=== PATIENT | female | born 1990 | race Caucasian/White ===

== ENCOUNTER 2018-02-14 21:14 | Emergency (ER) | payer BC, MEDICAID, OTHER ==
[~2018-02-14] VITALS: Ht 157.5 cm; Wt 51.7 kg
[2018-02-14 21:17] VITALS: BP_SYST 120
[2018-02-14 21:43] LABS: BILIRUBIN,URINE NEGATIVE (NEGATIVE); BLOOD, URINE 2+ (NEGATIVE); CLARITY/URINE CLOUDY (CLEAR); COLOR,URINE YELLOW (YELLOW); GLUCOSE,URINE NEGATIVE (NEGATIVE); KETONES,URINE NEGATIVE (NEGATIVE); LEUKOCYTE ESTERASE ,URINE 2+ (NEGATIVE); NITRITE, URINE POSITIVE (NEGATIVE); PROTEIN URINE 2+ (NEGATIVE)
[2018-02-14 21:47] LABS: BACTERIA,URINE FEW /HPF (None Seen); WBC,URINE >100 /HPF (0-3)
[2018-02-14 21:59] LABS: BASOPHILS # (AUTO) 0.1 K/uL (0.0-0.2); BASOPHILS % (AUTO) 0.8 % (0.0-2.0); EOSINOPHILS # (AUTO) 0.1 K/uL (0.0-0.4); EOSINOPHILS % (AUTO) 0.6 % (0.0-4.0); HEMATOCRIT 39.8 % (36-48); HEMOGLOBIN 13.7 g/dL (12.0-16.0); MEAN CORPUSCULAR HEMOGLOBIN 32 pg (27-31); MEAN CORPUSCULAR HGB CONC 34 % (32-36); MEAN CORPUSCULAR VOLUME 94 fL (79.0-98.0); MONOCYTES # (AUTO) 0.4 K/uL (0.0-1.0); MONOCYTES % (AUTO) 4.6 % (1.7-9.3); NEUTROPHILS # (AUTO) 5.2 K/uL (1.8-7.7); PLATELET COUNT (AUTO) 214 K/uL (130-430); RED BLOOD CELL COUNT(AUTO) 4.26 MIL/uL (4.2-6.2); RED CELL DISTRIBUTION WIDTH 11.5 % (9.0-15.0); WHITE BLOOD COUNT (AUTO) 8.8 K/uL (4.8-10.8)
[2018-02-14] MEDS ORDERED: cefTRIAXone 1 GM VIAL ONE (22:14)
[2018-02-14] MEDS ORDERED: cefTRIAXone 1 GM in D5W 50 ML IV ONE (22:15)
[2018-02-14] MEDS ORDERED: AZITHROMYCIN 250 MG TABLET PO ONE (22:15)
[2018-02-14] MEDS ORDERED: DIPHENHYDRAMINE INJ 50 MG/ML VIAL IVP ONE (22:15)
[2018-02-14 22:19] LABS: CALCIUM 9.2 mg/dL (8.4-11.0); POTASSIUM 3.7 mmol/L (3.5-5.1)
[2018-02-14 22:30] LABS: ALBUMIN 3.9 g/dL (3.4-4.8); TOTAL BILIRUBIN 0.5 mg/dL (0.0-1.0)
[2018-02-14 23:14] VITALS: BP_SYST 124
[2018-02-17 03:06] LABS: CHLAMYDIA TRACHOMATIS NAA Negative (Negative); NEISSERIA GONORRHOEAE NAA Negative (Negative)
== END 2018-02-14 23:14 | disposition home or self-care (01) ==
LOC: SED 21:14
DX: N76.0 Acute vaginitis (principal); B96.89 Other specified bacterial agents as the cause of diseases classified elsewhere; N30.91 Cystitis, unspecified with hematuria; Z88.0 Allergy status to penicillin; Z88.2 Allergy status to sulfonamides
CPT/HCPCS: 36415; 80053; 81000; 84702; 85025; 87086; 87210; 87491; 87591; 96365; 96375; 99284; J0696; J1200; J7060; Q0144

== ENCOUNTER 2018-04-14 20:19 | Emergency (ER) | payer MEDICAID ==
[~2018-04-14] VITALS: Ht 160 cm; Wt 54.4 kg
[2018-04-14 20:23] VITALS: BP_SYST 105
[2018-04-14 20:46] LABS: BILIRUBIN,URINE NEGATIVE (NEGATIVE); BLOOD, URINE 1+ (NEGATIVE); CLARITY/URINE CLOUDY (CLEAR); COLOR,URINE YELLOW (YELLOW); GLUCOSE,URINE NEGATIVE (NEGATIVE); KETONES,URINE NEGATIVE (NEGATIVE); LEUKOCYTE ESTERASE ,URINE 2+ (NEGATIVE); NITRITE, URINE POSITIVE (NEGATIVE); PROTEIN URINE 1+ (NEGATIVE); UROBILINOGEN,URINE 0.2 (0.2-1.0)
[2018-04-14 21:03] LABS: BACTERIA,URINE MANY /HPF (None Seen); MUCUS,URINE None Seen /LPF (None Seen); WBC,URINE 80-100 /HPF (0-3)
[2018-04-14] MEDS ORDERED: NACL 0.9% 1,000 ML IV SCH (21:50)
[2018-04-14] MEDS ORDERED: PROCHLORPERAZINE EDISYLATE 10 MG/2 ML VIAL IVP ONE (22:00)
[2018-04-14] MEDS ORDERED: GENTAMICIN 80 mg/100 mL NS 100 ML IV ONE (22:00)
[2018-04-14] MEDS ORDERED: LEVOFLOXACIN 500 MG/D5W 100 ML IV ONE (22:00)
[2018-04-14] MEDS ORDERED: KETOROLAC TROMETHAMINE 30 MG VIAL IVP ONE (22:30)
[2018-04-14 22:47] LABS: BASOPHILS # (AUTO) 0.1 K/uL (0.0-0.2); BASOPHILS % (AUTO) 0.9 % (0.0-2.0); EOSINOPHILS # (AUTO) 0.1 K/uL (0.0-0.4); EOSINOPHILS % (AUTO) 1.4 % (0.0-4.0); HEMATOCRIT 40.5 % (36-48); HEMOGLOBIN 13.8 g/dL (12.0-16.0); LYMPHOCYTES # (AUTO) 3.4 K/uL (1.0-5.5); LYMPHOCYTES % (AUTO) 48.7 % (20.5-51.5); MEAN CORPUSCULAR HEMOGLOBIN 33 pg (27-31); MEAN CORPUSCULAR HGB CONC 34 % (32-36); MEAN CORPUSCULAR VOLUME 95 fL (79.0-98.0); MONOCYTES # (AUTO) 0.4 K/uL (0.0-1.0); MONOCYTES % (AUTO) 5.3 % (1.7-9.3); NEUTROPHILS # (AUTO) 3.1 K/uL (1.8-7.7); NEUTROPHILS % (AUTO) 43.7 % (40.0-70.0); PLATELET COUNT (AUTO) 271 K/uL (130-430); RED BLOOD CELL COUNT(AUTO) 4.25 MIL/uL (4.2-6.2); RED CELL DISTRIBUTION WIDTH 11.7 % (9.0-15.0); WHITE BLOOD COUNT (AUTO) 7.1 K/uL (4.8-10.8)
[2018-04-14 22:56] LABS: CALCIUM 9.1 mg/dL (8.4-11.0); CREATININE 0.74 mg/dL (0.55-1.30); POTASSIUM 3.8 mmol/L (3.5-5.1)
[2018-04-14 23:01] LABS: ALBUMIN 3.8 g/dL (3.4-4.8); TOTAL BILIRUBIN 0.4 mg/dL (0.0-1.0)
[2018-04-15] MEDS ORDERED: PHENAZOPYRIDINE HCL 100 MG TABLET PO ONE (00:45)
[2018-04-15 00:50] VITALS: BP_SYST 115
== END 2018-04-15 00:50 | disposition home or self-care (01) ==
LOC: SED 20:19
DX: N12 Tubulo-interstitial nephritis, not specified as acute or chronic (principal); N39.0 Urinary tract infection, site not specified; Z88.0 Allergy status to penicillin; Z88.2 Allergy status to sulfonamides
CPT/HCPCS: 36415; 80053; 81000; 81025; 83605; 85025; 87040; 87086; 96365; 96368; 96375; 99284; J0780; J1580; J1885; J1956; J7030; 87186-TC

== ENCOUNTER 2019-01-24 06:11 | Emergency (ER) | payer MEDICAID, OTHER ==
[~2019-01-24] VITALS: Ht 160 cm; Wt 52.2 kg
[2019-01-24 06:20] VITALS: BP_SYST 136
--- NOTE | 2019-01-24 06:20 | NUR ---
Patient to ER bed 8 to gown for evaluation. Side rails up.
--- NOTE | 2019-01-24 06:25 | NUR ---
Pt is AAO x 4 and ambulatory. Pt complaining of lower abdominal pain since 1 am this morning. Pt states "feels like contractions." Pt denies fever, vomiting, but feels nauseous. Per pt, pain is 10/10. No other injuries/complaints per patient or noted.
--- NOTE | 2019-01-24 06:36 | NUR ---
ER Dr. Rosario at bedside examining patient.
[2019-01-24] MEDS ORDERED: NACL 0.9% 1,000 ML IV ONE (06:40)
[2019-01-24] MEDS ORDERED: MORPHINE SULFATE 10 MG/ML VIAL IVP ONE (06:45)
[2019-01-24] MEDS ORDERED: ONDANSETRON HCL 4 MG/2 ML VIAL IVP ONE (06:45)
--- NOTE | 2019-01-24 07:00 | NUR ---
medications were given, pt tolerated well. No adverse reaction, will continue to monitor.
[2019-01-24 07:06] LABS: BASOPHILS % (AUTO) 0.6 % (0.0-2.0); EOSINOPHILS # (AUTO) 0.1 K/uL (0.0-0.4); EOSINOPHILS % (AUTO) 1.1 % (0.0-4.0); HEMATOCRIT 40.8 % (36-48); HEMOGLOBIN 14.2 g/dL (12.0-16.0); LYMPHOCYTES # (AUTO) 3.8 K/uL (1.0-5.5); LYMPHOCYTES % (AUTO) 54.7 % (20.5-51.5); MEAN CORPUSCULAR HEMOGLOBIN 32 pg (27-31); MEAN CORPUSCULAR HGB CONC 35 % (32-36); MEAN CORPUSCULAR VOLUME 93 fL (79.0-98.0); MONOCYTES # (AUTO) 0.5 K/uL (0.0-1.0); MONOCYTES % (AUTO) 6.9 % (1.7-9.3); NEUTROPHILS # (AUTO) 2.5 K/uL (1.8-7.7); NEUTROPHILS % (AUTO) 36.7 % (40.0-70.0); PLATELET COUNT (AUTO) 217 K/uL (130-430); RED BLOOD CELL COUNT(AUTO) 4.38 MIL/uL (4.2-6.2); RED CELL DISTRIBUTION WIDTH 12.6 % (9.0-15.0); WHITE BLOOD COUNT (AUTO) 6.9 K/uL (4.8-10.8)
[2019-01-24 07:10] LABS: CALCIUM 9.3 mg/dL (8.4-11.0); CREATININE 0.8 mg/dL (0.55-1.30); POTASSIUM 3.5 mmol/L (3.5-5.1)
[2019-01-24 07:12] LABS: BILIRUBIN,URINE 1+ (NEGATIVE); BLOOD, URINE NEGATIVE (NEGATIVE); CLARITY/URINE CLEAR (CLEAR); COLOR,URINE YELLOW (YELLOW); GLUCOSE,URINE NEGATIVE (NEGATIVE); KETONES,URINE NEGATIVE (NEGATIVE); LEUKOCYTE ESTERASE ,URINE TRACE (NEGATIVE); NITRITE, URINE NEGATIVE (NEGATIVE); PROTEIN URINE NEGATIVE (NEGATIVE); UROBILINOGEN,URINE 0.2 (0.2-1.0)
[2019-01-24 07:14] LABS: TOTAL BILIRUBIN 1.1 mg/dL (0.0-1.0)
[2019-01-24 07:21] LABS: PROTHROMBIN TIME 10.7 SECS (9.5-12.5)
[2019-01-24] MEDS ORDERED: IOHEXOL 100 ML IV ONE (07:29)
--- NOTE | 2019-01-24 07:30 | NUR ---
PATIENT SITTING UP ON BED. PATIENT VERBALIZED GOOD RELIEF FROM NAUSEA. TOLERABLE VERBALIZED. NO EPISODES OF VOMITING. PATIENT VERBALIZED MINIMAL RELIEF FROM LOWER ABDOMINAL PAIN. PAIN = 9/10. PATIENT NOTED WITH INTERMITTENT FACIAL GRIMACING AND GUARDING OF ABDOMEN. OFFERED TO ASK MD FOR MORE PAIN MEDICATIONS, BUT PT REFUSED. PT STATES, "I AM OK FOR NOW. I DON'T WANT MORE PAIN MEDICATIONS YET." REST AND RELAXATION ENCOURAGED. DR. RAM MADE AWARE. NO NEW ORDERS GIVEN. PT ON HER CELL PHONE. IV FLUIDS CONTINUE TO INFUSE AND TOLERATING WELL. WILL CONTINUE TO MONITOR. Addendum: 01/24/19 at 1010 by BRITTANEYEDOCesar PATIENT PLACED ON O2 SATURATION MONITOR.
[2019-01-24 07:32] LABS: BACTERIA,URINE FEW /HPF (None Seen)
[2019-01-24 07:33] LABS: MUCUS,URINE 1+ /LPF (None Seen)
--- NOTE | 2019-01-24 07:45 | NUR ---
Patient transported to radiology via GURNEY, accompanied by MICROFILMER.
--- NOTE | 2019-01-24 08:00 | NUR ---
Returned from radiology. PATIENT IN NO ACUTE DISTRESS.
--- NOTE | 2019-01-24 08:05 | NUR ---
PATIENT STILL WITH C/O LOWER ABDOMINAL PAIN = 06/05. PATIENT NOW REQUESTING FOR MORE PAIN MEDICATIONS. DR. HARVEY MADE AWARE. NEW ORDERS NOTED AND TO BE CARRIED OUT.
--- NOTE | 2019-01-24 08:10 | NUR ---
Dr. Camarillo @ bedside examing patient.
[2019-01-24] MEDS ORDERED: KETOROLAC TROMETHAMINE 30 MG VIAL IVP ONE (08:15)
[2019-01-24] MEDS ORDERED: KETOROLAC TROMETHAMINE 30 MG VIAL ONE (08:19)
--- NOTE | 2019-01-24 09:10 | NUR ---
Patient resting quietly. No acute distress noted.
[2019-01-24 09:40] VITALS: BP_SYST 124
--- NOTE | 2019-01-24 09:40 | NUR ---
Patient given written and verbal discharge instructions and verbalizes understanding. ER MD discussed with patient the results and treatment provided. Patient in stable condition. ID arm band removed. IV catheter removed intact and dressing applied, no active bleeding. Rx of TRAMADOL, ZOFRAN ODT, AND MOTRIN given. Patient educated on pain management and to follow up with PMD. Pain Scale 0/10. Opportunity for questions provided and answered. Medication side effect fact sheet provided. PATIENT IN NO ACUTE DISTRESS AND IN GOOD CONDITION. PATIENT NOTED WITH A STABLE GAIT.
== END 2019-01-24 09:40 | disposition home or self-care (01) ==
LOC: SED 06:11
DX: R10.2 Pelvic and perineal pain (principal); Z88.0 Allergy status to penicillin; Z88.2 Allergy status to sulfonamides
CPT/HCPCS: 36415; 74177; 76830; 76857; 80053; 81000; 81025; 82150; 83690; 85025; 85610; 87086; 96374; 96375; 99284; J1885; J2270; J2405; J7030; Q9967

== ENCOUNTER 2021-04-01 17:22 | Emergency (ER) | payer MEDICAID, OTHER ==
[~2021-04-01] VITALS: Ht 157.5 cm; Wt 49.9 kg
[2021-04-01 17:32] VITALS: BP_SYST 95
[2021-04-01] MEDS ORDERED: ONDANSETRON HCL 4 MG/2 ML VIAL IVP ONE (17:45)
[2021-04-01] MEDS ORDERED: NACL 0.9% 1,000 ML IV ONE (17:45)
[2021-04-01 17:56] LABS: BASOPHILS % (AUTO) 0.3 % (0.0-2.0); EOSINOPHILS # (AUTO) 0.1 K/uL (0.0-0.4); EOSINOPHILS % (AUTO) 0.6 % (0.0-4.0); HEMOGLOBIN 13.8 g/dL (12.0-16.0); LYMPHOCYTES # (AUTO) 3.1 K/uL (1.0-5.5); LYMPHOCYTES % (AUTO) 34.3 % (20.5-51.5); MEAN CORPUSCULAR HEMOGLOBIN 32 pg (27-31); MEAN CORPUSCULAR HGB CONC 34 % (32-36); MEAN CORPUSCULAR VOLUME 93 fL (79.0-98.0); MONOCYTES # (AUTO) 0.5 K/uL (0.0-1.0); MONOCYTES % (AUTO) 5.8 % (1.7-9.3); NEUTROPHILS # (AUTO) 5.4 K/uL (1.8-7.7); PLATELET COUNT (AUTO) 209 K/uL (130-430); RED BLOOD CELL COUNT(AUTO) 4.29 MIL/uL (4.2-6.2); RED CELL DISTRIBUTION WIDTH 12.7 % (9.0-15.0); WHITE BLOOD COUNT (AUTO) 9.2 K/uL (4.8-10.8)
[2021-04-01] MEDS ORDERED: ACETAMINOPHEN 325 MG TABLET PO ONE (19:00)
[2021-04-01 19:58] VITALS: BP_SYST 121
[2021-04-01] MEDS ORDERED: NAPR-690 PO (22:59)
== END 2021-04-01 19:58 | disposition home or self-care (01) ==
LOC: SED 17:22
DX: O20.0 Threatened abortion (principal); Z3A.11 11 weeks gestation of pregnancy; Z88.0 Allergy status to penicillin; Z88.2 Allergy status to sulfonamides
CPT/HCPCS: 36415; 76805; 81002; 84702; 85025; 86870; 86886; 86900; 86901; 96361; 96374; 99284; J2405; J7030

== ENCOUNTER 2021-04-01 20:57 | Emergency (ER) | payer MEDICAID, OTHER ==
[~2021-04-01] VITALS: Ht 157.5 cm; Wt 49.9 kg
[2021-04-01 21:20] VITALS: BP_SYST 123
[2021-04-01] MEDS ORDERED: MORPHINE 2 MG/ML INJ. SYRINGE IVP ONE (22:00)
[2021-04-01] MEDS ORDERED: ONDANSETRON HCL 4 MG/2 ML VIAL IVP ONE (22:00)
[2021-04-01] MEDS ORDERED: NACL 0.9% 1,000 ML IV ONE (22:00)
[2021-04-01 22:09] LABS: BASOPHILS # (AUTO) 0.1 K/uL (0.0-0.2); BASOPHILS % (AUTO) 0.8 % (0.0-2.0); EOSINOPHILS % (AUTO) 0.4 % (0.0-4.0); HEMATOCRIT 36.8 % (36-48); HEMOGLOBIN 12.9 g/dL (12.0-16.0); LYMPHOCYTES % (AUTO) 26.6 % (20.5-51.5); MEAN CORPUSCULAR HEMOGLOBIN 32 pg (27-31); MEAN CORPUSCULAR HGB CONC 35 % (32-36); MEAN CORPUSCULAR VOLUME 91 fL (79.0-98.0); MONOCYTES # (AUTO) 0.6 K/uL (0.0-1.0); MONOCYTES % (AUTO) 4.9 % (1.7-9.3); NEUTROPHILS # (AUTO) 7.6 K/uL (1.8-7.7); NEUTROPHILS % (AUTO) 67.3 % (40.0-70.0); PLATELET COUNT (AUTO) 213 K/uL (130-430); RED BLOOD CELL COUNT(AUTO) 4.02 MIL/uL (4.2-6.2); RED CELL DISTRIBUTION WIDTH 12.8 % (9.0-15.0); WHITE BLOOD COUNT (AUTO) 11.3 K/uL (4.8-10.8)
[2021-04-01] MEDS ORDERED: NAPR-690 PO (22:59)
[2021-04-01 23:20] VITALS: BP_SYST 123
== END 2021-04-01 23:20 | disposition home or self-care (01) ==
LOC: SED 20:57
DX: O03.9 Complete or unspecified spontaneous abortion without complication (principal); Z88.0 Allergy status to penicillin; Z88.2 Allergy status to sulfonamides; Z79.899 Other long term (current) drug therapy
CPT/HCPCS: 36415; 76830-TC; 76857; 85025; 99284; J2270; J2405

== ENCOUNTER 2021-08-12 18:56 | Emergency (ER) | payer MEDICAID ==
[~2021-08-12] VITALS: Ht 157.5 cm; Wt 55.3 kg
[~2021-08-12 18:56] MED LIST: NAPR-690 PO
[2021-08-12 19:06] VITALS: BP_SYST 122
[2021-08-12] MEDS ORDERED: PHEN-726 PO (20:01)
[2021-08-12] MEDS ORDERED: CEPH250C PO (20:01)
[2021-08-12 20:11] LABS: BILIRUBIN,URINE 1+ (NEGATIVE); BLOOD, URINE 3+ (NEGATIVE); CLARITY/URINE SL CLOUDY (CLEAR); COLOR,URINE ORANGE (YELLOW); GLUCOSE,URINE TRACE (NEGATIVE); KETONES,URINE NEGATIVE (NEGATIVE); LEUKOCYTE ESTERASE ,URINE 3+ (NEGATIVE); NITRITE, URINE POSITIVE (NEGATIVE); PH,URINE 6.5 (5.0-8.0); PROTEIN URINE 2+ (NEGATIVE)
[2021-08-12] MEDS ORDERED: SULF1TAB48 PO (20:12)
[2021-08-12 20:20] VITALS: BP_SYST 122
[2021-08-12 20:41] LABS: BACTERIA,URINE FEW /HPF (None Seen); MUCUS,URINE None Seen /LPF (None Seen); RBC,URINE 20-50 /HPF (0-3); WBC,URINE >100 /HPF (0-3)
== END 2021-08-12 20:20 | disposition home or self-care (01) ==
LOC: SED 18:56
DX: N39.0 Urinary tract infection, site not specified (principal); Z88.0 Allergy status to penicillin; Z88.2 Allergy status to sulfonamides; Z79.899 Other long term (current) drug therapy
CPT/HCPCS: 81000; 81025; 87086; 99283

== ENCOUNTER 2022-01-11 11:51 | Emergency (ER) | payer MEDICAID ==
[~2022-01-11] VITALS: Ht 157.5 cm; Wt 54.4 kg
[~2022-01-11 11:51] MED LIST changes: +PHEN-726 PO; +SULF1TAB48 PO
[2022-01-11 11:55] VITALS: BP_SYST 123
--- NOTE | 2022-01-11 11:55 | NUR ---
Patient to ER bed 02 to gown for evaluation. Side rails up.
--- NOTE | 2022-01-11 12:00 | NUR ---
Dr. Meza at bedside to assess.
[2022-01-11] MEDS ORDERED: ALBMDI INH (12:18)
[2022-01-11] MEDS ORDERED: tessalon perles PO (12:21)
[2022-01-11 12:59] VITALS: BP_SYST 123
--- NOTE | 2022-01-11 12:59 | NUR ---
Patient given written and verbal discharge instructions and verbalizes understanding. Dr. Derrick MANCILLA MD discussed with patient the results and treatment provided. Patient in stable condition. ID arm band removed. Rx per MD. Patient educated on pain management and to follow up with PMD. Pain Scale 0/10. Opportunity for questions provided and answered. Medication side effect fact sheet provided.
== END 2022-01-11 12:59 | disposition home or self-care (01) ==
LOC: SED 11:51
DX: B34.9 Viral infection, unspecified (principal); R05.9 Cough, unspecified; Z20.822 Contact with and (suspected) exposure to COVID-19
CPT/HCPCS: 36415; 99283

== ENCOUNTER 2022-07-20 14:33 | Emergency (ER) | payer MEDICAID ==
[~2022-07-20] VITALS: Ht 157.5 cm; Wt 54.4 kg
[~2022-07-20 14:33] MED LIST changes: +ALBMDI INH; +ONDA-8 TL; +tessalon perles PO
[2022-07-20 14:57] VITALS: BP_SYST 119
[2022-07-20 17:14] VITALS: BP_SYST 100
== END 2022-07-20 17:14 | disposition home or self-care (01) ==
LOC: SED 14:33
DX: O20.0 Threatened abortion (principal); Z88.0 Allergy status to penicillin; Z88.2 Allergy status to sulfonamides; Z3A.01 Less than 8 weeks gestation of pregnancy; Z79.899 Other long term (current) drug therapy
CPT/HCPCS: 36415; 84702; 87210-TC; 87491; 99284

== ENCOUNTER 2022-07-31 07:02 | Emergency (ER) | payer MEDICAID ==
[~2022-07-31] VITALS: Ht 157.5 cm; Wt 54.4 kg
[2022-07-31 07:40] VITALS: BP_SYST 113
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
[2022-07-31] MEDS ORDERED: KETOROLAC TROMETHAMINE 30 MG VIAL IVP ONE (08:00)
[2022-07-31] MEDS ORDERED: METOCLOPRAMIDE HCL 10 MG/2 ML VIAL IVP ONE (08:00)
[2022-07-31] MEDS ORDERED: DEXAMETHASONE SOD PHOSPHATE 10 MG/ML VIAL IVP ONE (08:00)
[2022-07-31] MEDS ORDERED: DIPHENHYDRAMINE INJ 50 MG/ML VIAL IVP ONE (08:00)
[2022-07-31] MEDS ORDERED: NACL 0.9% 1,000 ML IV ONE (08:00)
[2022-07-31 08:27] LABS: BASOPHILS # (AUTO) 0.1 K/uL (0.0-0.2); BASOPHILS % (AUTO) 0.7 % (0.0-2.0); EOSINOPHILS % (AUTO) 0.3 % (0.0-4.0); HEMATOCRIT 39.2 % (36-48); HEMOGLOBIN 13.7 g/dL (12.0-16.0); LYMPHOCYTES # (AUTO) 2.4 K/uL (1.0-5.5); LYMPHOCYTES % (AUTO) 29.5 % (20.5-51.5); MEAN CORPUSCULAR HEMOGLOBIN 32 pg (27-31); MEAN CORPUSCULAR HGB CONC 35 % (32-36); MEAN CORPUSCULAR VOLUME 92 fL (79.0-98.0); MONOCYTES # (AUTO) 0.3 K/uL (0.0-1.0); MONOCYTES % (AUTO) 4.2 % (1.7-9.3); NEUTROPHILS # (AUTO) 5.3 K/uL (1.8-7.7); NEUTROPHILS % (AUTO) 65.3 % (40.0-70.0); PLATELET COUNT (AUTO) 203 K/uL (130-430); RED BLOOD CELL COUNT(AUTO) 4.27 MIL/uL (4.2-6.2); RED CELL DISTRIBUTION WIDTH 12.9 % (9.0-15.0); WHITE BLOOD COUNT (AUTO) 8.1 K/uL (4.8-10.8)
--- NOTE | 2022-07-31 08:40 | NUR ---
ER at bedside examining patient.
--- NOTE | 2022-07-31 08:43 | NUR ---
IVP MEDS GIVEN FOR [employer]. PT ROBERT WELL. NO ADR. VSS. SLOW IVP ROBERT WELL. IVF CONTINUED BY [employer].
--- NOTE | 2022-07-31 08:45 | NUR ---
PT BIB SELF FROM HOME CC MIGRAINE HEADACHE RECURRING PAIN PAST FEW MONTHS INTERMITTANTLY EXASCERBATED BY STRESS. PT NOTES ARGUING WITH ROOM MATE SIGNIFICANT OTHER THIS MORNING WHEN HEAD ACHE 9/10 PAIN SCALE SENSITIVE TO LIGHT AND SOUND.
[2022-07-31 09:05] LABS: CALCIUM 9.5 mg/dL (8.4-11.0); CREATININE 0.76 mg/dL (0.55-1.30)
[2022-07-31 09:09] LABS: ALBUMIN 4.2 g/dL (3.4-4.8); TOTAL BILIRUBIN 0.5 mg/dL (0.0-1.0)
--- NOTE | 2022-07-31 09:32 | NUR ---
PT RESTING WITHOUT COMPLAINT.
--- NOTE | 2022-07-31 10:33 | NUR ---
Pt states headache has been relieved.
[2022-07-31] MEDS ORDERED: BUTA1CAP43 PO (10:42)
--- NOTE | 2022-07-31 10:51 | NUR ---
Patient given written and verbal discharge instructions and verbalizes understanding. ER MD discussed with patient the results and treatment provided. Patient in stable condition. ID arm band removed. IV catheter removed intact and dressing applied, no active bleeding. Rx of Fiorcet given. Patient educated on pain management and to follow up with PMD. Opportunity for questions provided and answered. Medication side effect fact sheet provided.
[2022-07-31 10:52] VITALS: BP_SYST 114
== END 2022-07-31 10:51 | disposition home or self-care (01) ==
LOC: SED 07:02
DX: G43.109 Migraine with aura, not intractable, without status migrainosus (principal); R11.0 Nausea; H53.149 Visual discomfort, unspecified; Z88.0 Allergy status to penicillin; Z88.2 Allergy status to sulfonamides; Z79.899 Other long term (current) drug therapy
CPT/HCPCS: 99284; 96374; 96375; 80053; 85025; 87040; 36415; 93005; 83605; J1100; J1200; J1885; J2765

== ENCOUNTER 2024-02-16 06:58 | Emergency (ER) | payer MEDICAID ==
[~2024-02-16] VITALS: Ht 157.5 cm; Wt 54.4 kg
[~2024-02-16 06:58] MED LIST changes: +BUTA1CAP43 PO
[2024-02-16 07:14] VITALS: BP_SYST 142; PULSE 71; RESP 16; TEMP 98.1; O2SAT 98
[2024-02-16 07:38] LABS: BILIRUBIN,URINE NEGATIVE (NEGATIVE); BLOOD, URINE 3+ (NEGATIVE); COLOR,URINE YELLOW (YELLOW); GLUCOSE,URINE NEGATIVE (NEGATIVE); KETONES,URINE NEGATIVE (NEGATIVE); LEUKOCYTE ESTERASE ,URINE 1+ (NEGATIVE); NITRITE, URINE NEGATIVE (NEGATIVE); PROTEIN URINE TRACE (NEGATIVE); UROBILINOGEN,URINE 0.2 (0.2-1.0)
[2024-02-16 07:46] LABS: BASOPHILS % (AUTO) 0.5 % (0.0-2.0); EOSINOPHILS # (AUTO) 0.1 K/uL (0.0-0.4); EOSINOPHILS % (AUTO) 0.9 % (0.0-4.0); HEMATOCRIT 37.3 % (36-48); HEMOGLOBIN 12.9 g/dL (12.0-16.0); LYMPHOCYTES % (AUTO) 24.5 % (20.5-51.5); MEAN CORPUSCULAR HEMOGLOBIN 32 pg (27-31); MEAN CORPUSCULAR HGB CONC 35 % (32-36); MEAN CORPUSCULAR VOLUME 91 fL (79.0-98.0); MONOCYTES # (AUTO) 0.5 K/uL (0.0-1.0); MONOCYTES % (AUTO) 6.4 % (1.7-9.3); NEUTROPHILS # (AUTO) 5.4 K/uL (1.8-7.7); NEUTROPHILS % (AUTO) 67.7 % (40.0-70.0); PLATELET COUNT (AUTO) 214 K/uL (130-430); RED BLOOD CELL COUNT(AUTO) 4.09 MIL/uL (4.2-6.2); RED CELL DISTRIBUTION WIDTH 12.7 % (9.0-15.0)
[2024-02-16 07:49] LABS: RBC,URINE 50-80 /HPF (0-3)
[2024-02-16 07:51] LABS: BACTERIA,URINE MODERATE /HPF (None Seen); CLARITY/URINE HAZY (CLEAR); WBC,URINE 20-50 /HPF (0-3)
[2024-02-16 07:52] LABS: MUCUS,URINE 1+ /LPF (None Seen)
[2024-02-16 08:02] LABS: CALCIUM 9.1 mg/dL (8.4-11.0); CREATININE 0.72 mg/dL (0.55-1.30); POTASSIUM 3.9 mmol/L (3.5-5.1)
[2024-02-16] MEDS ORDERED: CEPH250C PO (08:48)
[2024-02-16 09:42] VITALS: BP_SYST 112; PULSE 74; RESP 16; TEMP 98.1; O2SAT 98
== END 2024-02-16 08:55 | disposition home or self-care (01) ==
LOC: SED 06:58
DX: N39.0 Urinary tract infection, site not specified (principal); R31.9 Hematuria, unspecified; R10.30 Lower abdominal pain, unspecified; Z88.0 Allergy status to penicillin; Z88.2 Allergy status to sulfonamides
CPT/HCPCS: 36415; 80048; 81000; 81001; 81015; 81025; 85025; 87086; 99284